=== PATIENT | female | born 2005 | race Caucasian/White ===

== ENCOUNTER 2023-05-25 17:20 | Emergency (ER) | payer OTHER ==
[~2023-05-25] VITALS: Ht 152.4 cm; Wt 73.5 kg
[2023-05-25 18:24] VITALS: BP 127/82; PULSE 109; RESP 20; TEMP 99.2; O2SAT 99
[2023-05-25] MEDS ORDERED: LORazepam 1 MG TAB PO ONE (20:00)
[2023-05-25 20:39] LABS: AMPHETAMINE, URINE NEGATIVE ng/ml (NEG <=1000); BARBITURATE, URINE NEGATIVE ng/ml (NEG <=200); BENZODIAZEPINE, URINE NEGATIVE ng/mL (NEG <=200); CANNABINOID, URINE NEGATIVE ng/mL (NEG <=50); COCAINE, URINE NEGATIVE ng/mL (NEG <=300); OPIATE, URINE NEGATIVE ng/mL (NEG <=2000); PHENCYCLIDINE SCREEN,URINE NEGATIVE ng/mL (NEG <=25)
[2023-05-25 20:42] VITALS: BP 143/86; PULSE 100; RESP 22
[2023-05-25] MEDS ORDERED: ACET-10509 PO (20:42)
[2023-05-25 20:45] VITALS: O2SAT 97
== END 2023-05-25 20:51 | disposition home or self-care (01) ==
LOC: MED 17:20
DX: R00.2 Palpitations (principal); F12.90 Cannabis use, unspecified, uncomplicated; F41.9 Anxiety disorder, unspecified; R00.0 Tachycardia, unspecified; T40.715A Adverse effect of cannabis, initial encounter; Z79.899 Other long term (current) drug therapy; Y92.89 Other specified places as the place of occurrence of the external cause
CPT/HCPCS: 80305; 81002; 81025; 93005; 99284

== ENCOUNTER 2023-06-21 10:31 | Emergency (ER) | payer OTHER ==
[~2023-06-21] VITALS: Ht 152.4 cm; Wt 74.8 kg
[~2023-06-21 10:31] MED LIST: ACET-10509 PO
[2023-06-21 10:43] VITALS: BP 131/75; PULSE 148; RESP 18; TEMP 98.5; O2SAT 97
[2023-06-21 11:08] LABS: BILIRUBIN,URINE 1+ (NEGATIVE); BLOOD, URINE 3+ (NEGATIVE); COLOR,URINE YELLOW (YELLOW); LEUKOCYTE ESTERASE ,URINE 1+ (NEGATIVE); NITRITE, URINE NEGATIVE (NEGATIVE); PH,URINE 5.5 (5.0-9.0); PROTEIN,URINE TRACE (NEGATIVE); UGLUCOSE NEGATIVE (NEGATIVE); UROBILINOGEN,URINE 0.2 EU/dL (0.2 - 1)
[2023-06-21 11:21] LABS: APPEARANCE,URINE SLIGHTLY HAZY (CLEAR)
[2023-06-21 11:23] LABS: BACTERIA,URINE FEW /HPF (None Seen); ICTOTEST NEGATIVE (NEGATIVE); MUCUS,URINE 1+ /LPF (None Seen); RBC,URINE 0-5 /HPF (0-5); SQUAMOUS EPITHELIAL CELL,UR 0-3 (FEW) /LPF (0-3 (FEW)); WBC,URINE 0-5 /HPF (0-5)
[2023-06-21] MEDS ORDERED: NACL 0.9% 1,000 ML IV ONE ×2 (12:05→13:45)
[2023-06-21] MEDS ORDERED: FAMOTIDINE 20 MG/2 ML VIAL IVP ONE (12:05)
[2023-06-21] MEDS ORDERED: ONDANSETRON 4 MG ODT PO ONE (12:05)
[2023-06-21 12:30] LABS: BASOPHILS % (AUTO) 0.2 % (0.0-2.0); HEMATOCRIT 43.2 % (36-48); HEMOGLOBIN 14.6 g/dL (12.0-16.0); LYMPHOCYTES # (AUTO) 0.4 K/uL (2.5-16.5); LYMPHOCYTES % (AUTO) 2.2 % (20.5-51.1); MEAN CORPUSCULAR HEMOGLOBIN 28 pg (27-31); MEAN CORPUSCULAR HGB CONC 34 g/dL (33-37); MEAN CORPUSCULAR VOLUME 81.7 fL (80-94); MONOCYTES # (AUTO) 0.5 K/uL (0.8-1.0); MONOCYTES % (AUTO) 2.8 % (1.7-9.3); NEUTROPHILS # (AUTO) 16.5 K/uL (1.8-7.7); NEUTROPHILS % (AUTO) 94.8 % (42.2-75.2); PLATELET COUNT (AUTO) 222 K/uL (140-450); RED BLOOD CELL COUNT(AUTO) 5.29 MIL/uL (4.20-5.40); RED CELL DISTRIBUTION WIDTH 13.4 % (11.6-13.7); WHITE BLOOD COUNT (AUTO) 17.5 K/uL (4.5-11.0)
[2023-06-21 13:01] VITALS: TEMP 100.8
[2023-06-21 13:07] LABS: CALCIUM 8.8 mg/dL (8.5-10.1); CREATININE 0.7 mg/dL (0.6-1.3)
[2023-06-21 13:28] LABS: ALBUMIN 4.2 g/dL (3.4-5.0); BILIRUBIN,DIRECT 0.2 mg/dL (0.0-0.3); TOTAL BILIRUBIN 1.4 mg/dL (0.0-1.0); TOTAL PROTEIN, SERUM 9.9 g/dL (6.4-8.2)
[2023-06-21] MEDS ORDERED: KETOROLAC 30 MG/ML VIAL IVP ONE (13:45)
[2023-06-21] MEDS ORDERED: POTASSIUM CHLORIDE 20% 40 MEQ/15 ML UDC PO ONE (13:55)
[2023-06-21] MEDS ORDERED: cefTRIAXone 1,000 MG VIAL ONE (14:36)
[2023-06-21 15:03] LABS: LACTIC ACID 1.7 mmol/L (0.4-2.0)
[2023-06-21 15:37] LABS: FREE T4 (FREE THYROXINE) 1.08 ng/dL (0.76-1.46); THYROID STIMULATING HORMONE 0.56 uIU/mL (0.34-3.74)
[2023-06-21 16:01] LABS: FLU A ANTIGEN negative (NEGATIVE); FLU B ANTIGEN NEGATIVE (NEGATIVE)
[2023-06-21] MEDS ORDERED: ONDA8TAB87 PO (16:30)
[2023-06-21] MEDS ORDERED: CIPR500T4 PO (16:30)
[2023-06-21 17:50] VITALS: BP 118/85; PULSE 100; RESP 18; O2SAT 96
== END 2023-06-21 17:50 | disposition home or self-care (01) ==
LOC: MED 10:31
DX: A41.9 Sepsis, unspecified organism (principal); Z20.822 Contact with and (suspected) exposure to COVID-19; E87.6 Hypokalemia; N30.00 Acute cystitis without hematuria; Z79.899 Other long term (current) drug therapy
CPT/HCPCS: 36415; 70450; 74177; 80048; 80076; 81001; 81025; 83605; 83690; 84439; 84443; 85025; 87040; 87086; 87426; 87804; 93005; 96361; 96365; 96375; 99291; J0696; J1885; J3490; J7030; Q0162; Q9967

== ENCOUNTER 2023-08-28 21:32 | Emergency (ER) | payer OTHER ==
[~2023-08-28] VITALS: Ht 152.4 cm; Wt 75.9 kg
[~2023-08-28 21:32] MED LIST changes: +CIPR500T4 PO; +ONDA8TAB87 PO
[2023-08-28 21:40] VITALS: BP 136/86; PULSE 105; RESP 19; TEMP 98.2; O2SAT 99
[2023-08-28 22:14] VITALS: BP 136/86; PULSE 105; RESP 19; TEMP 98.2; O2SAT 98
[2023-08-28 22:20] LABS: APPEARANCE,URINE CLEAR (CLEAR); BILIRUBIN,URINE NEGATIVE (NEGATIVE); BLOOD, URINE NEGATIVE (NEGATIVE); COLOR,URINE YELLOW (YELLOW); LEUKOCYTE ESTERASE ,URINE TRACE (NEGATIVE); NITRITE, URINE NEGATIVE (NEGATIVE); PH,URINE 6.5 (5.0-9.0); PROTEIN,URINE NEGATIVE (NEGATIVE); UGLUCOSE NEGATIVE (NEGATIVE); UROBILINOGEN,URINE 0.2 EU/dL (0.2 - 1)
[2023-08-28 22:23] LABS: BACTERIA,URINE >30 (MANY) /HPF (None Seen); MUCUS,URINE 1+ /LPF (None Seen); RBC,URINE 0-5 /HPF (0-5); SQUAMOUS EPITHELIAL CELL,UR 0-3 (FEW) /LPF (0-3 (FEW))
[2023-08-28] MEDS ORDERED: LIDOCAINE MPF 1% 5 ML ONE (22:45)
[2023-08-28] MEDS ORDERED: CEPH-588 PO (22:45)
[2023-08-28] MEDS ORDERED: cefTRIAXone 1,000 MG VIAL ONE (22:45)
[2023-08-28] MEDS ORDERED: ACET-10509 PO (22:45)
[2023-08-28] MEDS ORDERED: PYR100 PO (22:45)
[2023-08-28] MEDS: PHENAZOPYRIDINE 100 MG TAB PO ONE (22:53)
[2023-08-28] MEDS: cefTRIAXone 1,000 MG in LIDOCAINE MPF 1% 2.1 ML IM ONE (22:53)
== END 2023-08-28 23:25 | disposition home or self-care (01) ==
LOC: MED 21:32
DX: N39.0 Urinary tract infection, site not specified (principal); Z79.899 Other long term (current) drug therapy
CPT/HCPCS: 81001; 81025; 87086; 96372; 99283; J0696; J2001

== ENCOUNTER 2024-01-15 22:52 | Emergency (ER) | payer OTHER ==
[~2024-01-15] VITALS: Ht 152.4 cm; Wt 74.8 kg
[~2024-01-15 22:52] MED LIST changes: +CEPH-588 PO; +PYR100 PO
[2024-01-15 22:54] VITALS: BP 148/101; PULSE 125; RESP 20; TEMP 98; O2SAT 97
[2024-01-16 00:49] VITALS: BP 132/90; PULSE 100; RESP 18; TEMP 98; O2SAT 98
[2024-01-16] MEDS: NACL 0.9% 1,000 ML IV ONE (00:51)
== END 2024-01-16 00:49 | disposition left against medical advice (07) ==
LOC: MED 22:52
DX: E86.0 Dehydration (principal); H10.213 Acute toxic conjunctivitis, bilateral; L25.3 Unspecified contact dermatitis due to other chemical products; F10.90 Alcohol use, unspecified, uncomplicated; F41.9 Anxiety disorder, unspecified; Z79.899 Other long term (current) drug therapy; Y90.9 Presence of alcohol in blood, level not specified
CPT/HCPCS: 81025; 99283; Q0163